=== PATIENT | male | born 1995 | race African-American/Black ===

== ENCOUNTER 2022-01-15 22:28 | Emergency (ER) | payer MEDICAID ==
[~2022-01-15] VITALS: Ht 167.6 cm; Wt 84.0 kg
[~2022-01-15 22:28] MED LIST: ALBU0.5N2; FLUT100M7
[2022-01-16 00:11] VITALS: BP 138/75
== END 2022-01-16 04:19 | disposition home or self-care (01) ==
LOC: ER 22:33
DX: K91.841 Postprocedural hemorrhage of a digestive system organ or structure following other procedure (principal); Z79.899 Other long term (current) drug therapy